=== PATIENT | female | born 1975 | race Caucasian/White ===

== ENCOUNTER 2017-01-18 16:29 | Inpatient (IN) | payer SELFPAY ==
[2017-01-18] MEDS ORDERED: ONDANSETRON 4 MG TAB.RAPDIS SL ONE (17:30)
[2017-01-18] MEDS ORDERED: ASPIRIN 81 MG TABLET, CHEWABLE PO ONE (17:30)
--- NOTE | 2017-01-18 17:32 | ER Document Report ---
ED Medical Screen (RME) - General Chief Complaint: Chest Pain Stated Complaint: CHEST PAINS Time Seen by Provider: 01/18/17 17:25 Mode of Arrival: Wheelchair Information source: Patient TRAVEL OUTSIDE OF THE [place] IN LAST 30 DAYS: No - HPI Patient complains to provider of: Abdominal pain/chest pain Onset: This afternoon Notes: 01/18/17 17:31 Patient is a 41-year-old female who presents to the emergency room complaining of chest pain/upper abdominal pain that started around 330 this afternoon, it is associated with shortness of breath and nausea, she has not been able to vomit but feels as though she needs to, she is diaphoretic, and moaning out in pain, stating she has never experienced symptoms like this before in her life, mother has a history of GA at age 50, patient is a diabetic - Related Data Allergies/Adverse Reactions: No Known Allergies Allergy (Unverified 01/18/17 17:01) Past Medical History Renal/ Medical History: Denies: Hx Peritoneal Dialysis Physical Exam - Vital signs Vitals: Temp Pulse Resp BP Pulse Ox 98.2 F 72 20 120/48 L 99 01/18/17 17:01 01/18/17 17:01 01/18/17 17:01 01/18/17 17:01 01/18/17 17:01 Course - Vital Signs Vital signs: Temp Pulse Resp BP Pulse Ox 98.2 F 72 20 120/48 L 99 01/18/17 17:01 01/18/17 17:01 01/18/17 17:01 01/18/17 17:01 01/18/17 17:01
[2017-01-18 18:06] LABS: ABSOLUTE BASOPHILS # (AUTO) 0.1 10^3/uL (0.0-0.2); ABSOLUTE EOSINOPHILS # (AUTO) 0.1 10^3/uL (0.0-0.6); ABSOLUTE LYMPHOCYTES (AUTO) 2.1 10^3/uL (0.5-4.7); ABSOLUTE MONOCYTES (AUTO) 0.6 10^3/uL (0.1-1.4); ABSOLUTE NEUT (AUTO) 11.2 10^3/uL (1.7-8.2); BASOPHILS % (AUTO) 0.6 % (0-2); EOSINOPHILS % (AUTO) 0.5 % (0-6); HEMATOCRIT 45.7 % (36.0-47.0); HEMOGLOBIN 14.8 g/dL (12.0-15.5); HGB HCT DIFFERENCE -1.3; MEAN CORPUSCULAR HEMOGLOBIN 28.4 pg (27.0-33.4); MEAN CORPUSCULAR HGB CONC 32.3 g/dL (32.0-36.0); MEAN CORPUSCULAR VOLUME 88 fl (80-97); MONOCYTES % (AUTO) 4.4 % (3-13); SEGMENTED NEUTROPHILS % (AUTO) 79.5 % (42-78); WHITE BLOOD COUNT 14.1 10^3/uL (4.0-10.5)
[2017-01-18 18:23] LABS: ALANINE AMINOTRANSFERASE 120 U/L (9-52); ALBUMIN 4.4 g/dL (3.5-5.0); ALKALINE PHOSPHATASE 66 U/L (38-126); ANION GAP 15 (5-19); ASPARTATE AMINO TRANSFERASE 81 U/L (14-36); BILIRUBIN,DIRECT 0.3 mg/dL (0.0-0.4); BILIRUBIN,TOTAL 1.3 mg/dL (0.2-1.3); BLOOD UREA NITROGEN 14 mg/dL (7-20); CALCIUM 9.8 mg/dL (8.4-10.2); CARBON DIOXIDE 23 mmol/L (22-30); CHLORIDE 103 mmol/L (98-107); CREATINE KINASE 32 U/L (30-135); CREATININE RESULT 0.72 mg/dL (0.52-1.25); GLUCOSE 188 mg/dL (75-110); POTASSIUM 4.2 mmol/L (3.6-5.0); SODIUM 140.9 mmol/L (137-145); TOTAL PROTEIN 7.8 g/dL (6.3-8.2)
[2017-01-18] MEDS ORDERED: KETOROLAC TROMETHAMINE INJ/PF 30 MG/1 ML SDV IV ONE (18:29)
--- NOTE | 2017-01-18 18:29 | RADIOLOGY REPORT (SQ) ---
EXAM DESCRIPTION: CHEST PA/LAT COMPLETED DATE/TIME: 01/18/2017 6:13 pm REASON FOR STUDY: cp COMPARISON: None. EXAM PARAMETERS: NUMBER OF VIEWS: two views TECHNIQUE: Digital Frontal and Lateral radiographic views of the chest acquired. RADIATION DOSE: NA LIMITATIONS: none FINDINGS: LUNGS AND PLEURA: No opacities, masses or pneumothorax. No pleural effusion. MEDIASTINUM AND HILAR STRUCTURES: No masses or contour abnormalities. HEART AND VASCULAR STRUCTURES: Heart upper limits of normal size. No evidence for failure. BONES: No acute findings. HARDWARE: Clips in the upper abdomen. OTHER: No other significant finding. IMPRESSION: NO SIGNIFICANT RADIOGRAPHIC FINDING IN THE CHEST. TECHNICAL DOCUMENTATION: JOB ID: [id number] [employer] All Rights Reserved
[2017-01-18 18:35] LABS: CREATINE KINASE MB 0.34 ng/mL (<4.55)
[2017-01-18 18:37] LABS: TROPONIN I < 0.012 ng/mL
--- NOTE | 2017-01-18 18:37 | EKG REPORT ---
SEVERITY:- NORMAL ECG - SINUS RHYTHM : Confirmed by: Magdalene Monte 18-Jan-2017 18:37:10
[2017-01-18 19:22] LABS: LIPASE 34855.3 U/L (23-300)
[2017-01-18] MEDS ORDERED: MORPHINE SULFATE 10 MG/ML INJ IV ONE (19:54)
--- NOTE | 2017-01-18 20:30 | ER Document Report ---
ED GI/ - General Chief Complaint: Chest Pain Stated Complaint: CHEST PAINS Time Seen by Provider: 01/18/17 17:25 Mode of Arrival: Wheelchair Notes: Patient says she had sudden onset of pain in the lower substernal chest region about 3:30 PM today while she was sitting in drinking water. There was very sudden onset of the pain and it spread from the lower substernal region into the epigastric region and right upper quadrant. Patient says is worsened by movement. Has been nauseated and had some dry heaves. Denies any diarrhea. Not constipated. Denies any fever. Has had some chills and sweats. Patient had her gallbladder removed in 2004. TRAVEL OUTSIDE OF THE [place] IN LAST 30 DAYS: No - Related Data Allergies/Adverse Reactions: No Known Allergies Allergy (Unverified 01/18/17 17:01) Past Medical History - General Information source: Patient - Social History Smoking Status: Unknown if Ever Smoked Cigarette use (# per day): No Chew tobacco use (# tins/day): No Drug Abuse: None Family History: Reviewed & Not Pertinent Patient has suicidal ideation: No Patient has homicidal ideation: No Endocrine Medical History: Reports: Hx Diabetes Mellitus Type 2 Past Surgical History: Reports: Hx Cholecystectomy Review of Systems - Review of Systems Notes: REVIEW OF SYSTEMS: CONSTITUTIONAL : Denies fever. EENT: Denies eye, ear, nose or mouth or throat pain or other symptoms. CARDIOVASCULAR: Denies chest pain. RESPIRATORY: Denies cough, chest congestion, or shortness of breath. GASTROINTESTINAL: See HPI. GENITOURINARY: Denies difficulty or painful urinating, urinary frequency, blood in urine. MUSCULOSKELETAL: Denies back or neck pain. Denies joint pain or swelling. SKIN: Denies rash or skin lesions. NEUROLOGICAL: Denies LOC or altered mental status. Denies headache. Denies sensory loss or motor deficits. ALL OTHER SYSTEMS REVIEWED AND NEGATIVE. Physical Exam - Vital signs Vitals: Temp Pulse Resp BP Pulse Ox 98.2 F 72 20 120/48 L 99 01/18/17 17:01 01/18/17 17:01 01/18/17 17:01 01/18/17 17:01 01/18/17 17:01 Interpretation: Normal - Notes Notes: PHYSICAL EXAMINATION: GENERAL: Appears to be in significant pain. HEAD: Atraumatic, normocephalic. NECK: Normal range of motion, supple. LUNGS: Breath sounds clear and equal bilaterally. HEART: Regular rate and rhythm without murmurs. ABDOMEN: Patient is tender to palpation in the epigastrium and right upper quadrant. There is some guarding to deep palpation. Tender of the abdomen is soft and nontender. BACK: No tenderness throughout entire back. EXTREMITIES: Normal range of motion without pain. NEUROLOGICAL: Normal speech, normal gait. Normal sensory, motor, and reflex exams. Awake, alert, and oriented x3. Cranial nerves normal. PSYCH: Normal mood, normal affect. SKIN: Warm, dry, no rashes. Course - Re-evaluation Re-evalutation: 01/18/17 20:34 Patient's labs show a white count of 14,000 and a lipase of 34,000. Discussed with surgeon injection molding machine tender and he does not do ERCPs. Discussed with Dr. Kumari, our GI injection molding machine tender and he does not do ERCPs. I called [facility] and they do not have on-call anyone at their facility that does ERCPx. I was referred to Dr. Jama in [place], who requested that we get a CT scan of this patient's abdomen before deciding that she needs to be transferred there for ERCP. I am turning patient's care over to Dr. Leon, who will check on the CT results and call back to Dr. Pritchard. - Vital Signs Vital signs: Temp Pulse Resp BP Pulse Ox 98.2 F 72 31 H 117/65 97 01/18/17 17:01 01/18/17 17:01 01/18/17 20:01 01/18/17 20:01 01/18/17 20:01 - Laboratory Result Diagrams: 01/18/17 17:49 01/18/17 17:49 Laboratory results interpreted by me: 01/18/17 01/18/17 17:49 17:49 WBC 14.1 H Seg Neutrophils % 79.5 H Absolute Neutrophils 11.2 H Glucose 188 H AST 81 H ALT 120 H Lipase 57815.3 H Discharge - Discharge Clinical Impression: Pancreatitis Qualifiers: Chronicity: acute Pancreatitis type: unspecified pancreatitis type Acute pancreatitis complication: unspecified Qualified Code(s): K85.90 - Acute pancreatitis without necrosis or infection, unspecified Condition: Stable Referrals: BESS HERMAN MD [Primary Care Provider] - Follow up as needed
--- NOTE | 2017-01-18 21:21 | RADIOLOGY REPORT (SQ) ---
EXAM DESCRIPTION: CT ABD/PELVIS WITH IV ONLY COMPLETED DATE/TIME: 01/18/2017 9:02 pm REASON FOR STUDY: Pancreatitis, post cholecystectomy COMPARISON: None. TECHNIQUE: CT scan of the abdomen and pelvis performed using helical scanning technique with dynamic intravenous contrast injection. No oral contrast. Images reviewed with lung, soft tissue, and bone windows. Reconstructed coronal and sagittal MPR images reviewed. Delayed images for evaluation of the urinary system also acquired. All images stored on PACS. All CT scanners at this facility use dose modulation, iterative reconstruction, and/or weight based d osing when appropriate to reduce radiation dose to as low as reasonably achievable (ALARA). [facility]: Dose Right [facility]: CareDose [facility]: Dose Right [facility]: Teradose 4D [facility]: Endocrine Technology CONTRAST TYPE AND DOSE: contrast/concentration: Isovue 370.00 mg/ml; Total Contrast Delivered: 100.0 ml; Total Saline Delivered: 50.0 ml RENAL FUNCTION: BUN 14 creatinine 0.72. RADIATION DOSE: Up-to-date CT equipment and radiation dose reduction techniques were employed. CTDIv ol: 20.4 - 20.9 mGy. DLP: 2351 mGy-cm.. LIMITATIONS: None. FINDINGS: LOWER CHEST: No significant findings. No nodules or infiltrates. LIVER: Normal size. Diffuse fatty infiltration. No masses or dilated ducts. SPLEEN: Normal size. No focal lesions. PANCREAS: No masses. No significant calcifications. Inflammatory changes with stranding in the perip ancreatic soft tissues. No fluid collections. Pancreatic duct not dilated. GALLBLADDER: Surgically absent. ADRENAL GLANDS: No significant masses or asymmetry. RIGHT KIDNEY AND URETER: No solid masses. No significant calcifications. No hydronephrosis or hyd roureter. LEFT KIDNEY AND URETER: No solid masses. No significant calcifications. No hydronephrosis or hydr oureter. AORTA AND VESSELS: No aneurysm. No dissection. Renal arteries, SMA, celiac without stenosis. RETROPERITONEUM: No retroperitoneal adenopathy, hemorrhage or masses. BOWEL AND PERITONEAL CAVITY: No masses or inflammatory changes. No free fluid or peritoneal masses. Duodenal diverticulum. APPENDIX: Not visualized. PELVIS: No mass or free fluid. IUD in the uterus. Normal bladder. ABDOMINAL WALL: No masses. No hernias. BONES: No significant or acute findings. OTHER: No other significant finding. IMPRESSION: 1. INFLAMMATORY CHANGES ASSOCIATED WITH THE PANCREAS CONSISTENT WITH ACUTE PANCREATITIS. NO FLUID CO LLECTIONS OR EVIDENCE OF PANCREATIC CYST OR PSEUDOCYST. 2. FATTY INFILTRATION OF THE LIVER. 3. NO OTHER SIGNIFICANT OR ACUTE FINDING IN THE ABDOMEN OR PELVIS ON CT SCAN WITH IV CONTRAST. TECHNICAL DOCUMENTATION: JOB ID: [id number] Quality ID # [id number]: Final reports with documentation of one or more dose reduction techniques (e.g., Au tomated exposure control, adjustment of the mA and/or kV according to patient size, use of iterative reconstruction technique) 2010 [employer]- All Rights Reserved
[2017-01-18 22:13] LABS: APPEARANCE,URINE CLEAR; BILIRUBIN,URINE NEGATIVE (NEGATIVE); GLUCOSE, URINE 50 mg/dL (NEGATIVE); KETONES,URINE 20 mg/dL (NEGATIVE); LEUKOCYTE ESTERASE,URINE NEGATIVE (NEGATIVE); NITRITE,URINE NEGATIVE (NEGATIVE); PROTEIN,URINE NEGATIVE (NEGATIVE); URINE SPECIFIC GRAVITY > 1.060; UROBILINOGEN,URINE NEGATIVE mg/dL (<2.0)
--- NOTE | 2017-01-18 22:14 | ER Document Report ---
Doctor's Note Notes: 01/18/17 22:14 I assumed care of this patient from Dr. Kemal Brewster. In summary this is a patient who is found to have acute pancreatitis due to an elevated lipase after presenting for chest pain and epigastric abdominal pain. Patient has been referred for transfer to [facility] for an ERCP. CT scan of the abdomen pelvis was obtained does demonstrate findings consistent with acute pancreatitis without alternative acute pathologies. Patient's pain is not controlled with IV analgesia here in the emergency department. I contacted the transfer center and relayed the findings of the CT scan and requested completion of transfer at this time. 01/18/17 23:16 Case was discussed with [facility] transfer [facility], receiving physician does not believe the patient requires transfer at this time based on CT results and lab results. After review of patient's laboratories and history I likewise concur that this is more consistent with an acute idiopathic pancreatitis as opposed to a gallstone induced pancreatitis the patient had a cholecystectomy more than 10 years ago. Moreover she has no evidence of bilirubin or significant LFT derangement. Alk phos is normal. I discussed this case with the hospitalist who will admit.
[2017-01-18] MEDS ORDERED: NORMAL SALINE 1000 ML 1,000 ML IV ONE ×2 (22:48→23:11)
[2017-01-18] MEDS ORDERED: MORPHINE SULFATE 10 MG/ML INJ IV PRN (23:14)
[2017-01-18] MEDS ORDERED: IPRATROPIUM/ALBUTEROL 0.5-2.5 MG/3 ML AMPUL NEB PRN (23:14)
[2017-01-18] MEDS ORDERED: ONDANSETRON HCL INJ/PF 4 MG/2 ML SDV IV PRN (23:14)
[2017-01-18] MEDS ORDERED: DEXTROSE 50%-WATER 25 GM/50 ML DISP.SYRIN IV PRN ×2 (23:19)
[2017-01-18] MEDS ORDERED: DEXTROSE 40% GEL 15 GM TUBE PO PRN ×2 (23:19)
[2017-01-18] MEDS ORDERED: GLUCAGON,HUMAN RECOMB 1 MG INJ IM PRN (23:19)
[2017-01-18 23:42] LABS: CHOLESTEROL 157.44 mg/dL (0-200); Direct HDL 43 mg/dL (>40); TRIGLYCERIDES 123 mg/dL (<150)
[2017-01-18] MEDS ORDERED: ATORVASTATIN CALCIUM 80 MG TABLET PO ONE (23:45)
[2017-01-18 23:53] LABS: DIRECT LDL 88 mg/dL (<100)
[2017-01-19] MEDS: KETOROLAC TROMETHAMINE INJ/PF 30 MG/1 ML SDV IV PRN ×3 (01:32→18:25)
[2017-01-19] MEDS: INSULIN LISPRO 100 UNIT/ML 3 ML VIAL SUBCUT PRN ×4 (01:45→18:19)
[2017-01-19] MEDS: MORPHINE SULFATE 10 MG/ML INJ IV PRN ×5 (02:39→21:55)
--- NOTE | 2017-01-19 02:56 | PDOC H&P ---
History of Present Illness Admission Date/PCP: 01/18/17 23:35 BESS HERMAN MD Patient complains of: Epigastric pain History of Present Illness: ANDREZ BURKS is a 41 year old female with past medical history of morbid obesity and diabetes who is in her usual state of health until approximately 6 hours prior to presentation following the abrupt onset of epigastric discomfort with increasing intensity to 5 out of 5 which radiated to the back and was dull in nature associated with nausea without vomiting prompting her to seek evaluation emergency room where she is found to have a lipase of 35,[address] of the abdomen pelvis notable for pancreatic inflammation without ductal dilatation or necrosis she receives IV fluid and morphine and referred to the hospitalist for admission. Patient denies previous episode, alcohol or recent change in medication. She is status post cholecystectomy greater than 10 years ago. Past Medical History Endocrine Medical History: Reports: Diabetes Mellitus Type 2, Obesity Past Surgical History Past Surgical History: Reports: Cholecystectomy Social History Information Source: Patient Smoking Status: Never Smoker Frequency of Alcohol Use: Occasional Drugs: None Hx Prescription Drug Abuse: No - Advance Directive Resuscitation Status: Full Code Family History Family History: CAD, DM Parental Family History Reviewed: Yes Children Family History Reviewed: Yes Sibling(s) Family History Reviewed.: Yes Medication/Allergy Home Medications: Metformin HCl [Metformin HCl ER] 500 mg PO DAILY 01/19/17 Allergies/Adverse Reactions: No Known Allergies Allergy (Unverified 01/18/17 17:01) Review of Systems Constitutional: ABSENT: chills, fever(s), headache(s), weight gain, weight loss Eyes: ABSENT: visual disturbances Ears: ABSENT: hearing changes Cardiovascular: ABSENT: chest pain, dyspnea on exertion, edema, orthropnea, palpitations Respiratory: ABSENT: cough, hemoptysis Gastrointestinal: ABSENT: abdominal pain, constipation, diarrhea, hematemesis, hematochezia, nausea, vomiting Genitourinary: ABSENT: dysuria, hematuria Musculoskeletal: ABSENT: joint swelling Integumentary: ABSENT: rash, wounds Neurological: ABSENT: abnormal gait, abnormal speech, confusion, dizziness, focal weakness, syncope Psychiatric: ABSENT: anxiety, depression, homidical ideation, suicidal ideation Endocrine: ABSENT: cold intolerance, heat intolerance, polydipsia, polyuria Hematologic/Lymphatic: ABSENT: easy bleeding, easy bruising Physical Exam Vital Signs: Temp Pulse Resp BP Pulse Ox 98.1 F 76 18 129/64 H 92 01/18/17 23:14 01/18/17 23:14 01/19/17 01:50 01/19/17 00:00 01/19/17 00:01 General appearance: PRESENT: cooperative, mild distress, morbidly obese, well- developed, well-nourished Head exam: PRESENT: atraumatic, normocephalic Eye exam: PRESENT: conjunctiva pink, EOMI, PERRLA. ABSENT: scleral icterus Ear exam: PRESENT: normal external ear exam Mouth exam: PRESENT: moist, tongue midline Neck exam: ABSENT: carotid bruit, JVD, lymphadenopathy, thyromegaly Respiratory exam: PRESENT: clear to auscultation norris. ABSENT: rales, rhonchi, wheezes Cardiovascular exam: PRESENT: RRR. ABSENT: diastolic murmur, rubs, systolic murmur Pulses: PRESENT: normal dorsalis pedis pul Vascular exam: PRESENT: normal capillary refill GI/Abdominal exam: PRESENT: hyperactive bowel sounds, normal bowel sounds, soft , tenderness - Epigastric pain to palpation. ABSENT: distended, guarding, mass , organolmegaly, rebound Rectal exam: PRESENT: deferred Extremities exam: PRESENT: full ROM. ABSENT: calf tenderness, clubbing, pedal edema Neurological exam: PRESENT: alert, awake, oriented to person, oriented to place , oriented to time, oriented to situation, CN II-XII grossly intact. ABSENT: motor sensory deficit Psychiatric exam: PRESENT: appropriate affect, normal mood. ABSENT: homicidal ideation, suicidal ideation Skin exam: PRESENT: dry, intact, warm. ABSENT: cyanosis, rash Results Impressions: Chest X-Ray 01/18/17 17:29 IMPRESSION: NO SIGNIFICANT RADIOGRAPHIC FINDING IN THE CHEST. Abdomen/Pelvis CT 01/18/17 20:22 IMPRESSION: 1. INFLAMMATORY CHANGES ASSOCIATED WITH THE PANCREAS CONSISTENT WITH ACUTE PANCREATITIS. NO FLUID COLLECTIONS OR EVIDENCE OF PANCREATIC CYST OR PSEUDOCYST. 2. FATTY INFILTRATION OF THE LIVER. 3. NO OTHER SIGNIFICANT OR ACUTE FINDING IN THE ABDOMEN OR PELVIS ON CT SCAN WITH IV CONTRAST. Assessment & Plan - Diagnosis (1) Pancreatitis Qualifiers: Chronicity: acute Pancreatitis type: unspecified pancreatitis type Acute pancreatitis complication: unspecified Qualified Code(s): K85.90 - Acute pancreatitis without necrosis or infection, unspecified Is this a current diagnosis for this admission?: YesPlan: Bowel rest, IV fluids and symptomatic management follow-up chemistry, lipid profile and lipase trial of refeeding with clear liquids as tolerated. If worsened GI consult and consideration of MRCP. (2) Diabetes 1.5, managed as type 2 Is this a current diagnosis for this admission?: YesPlan: Hold metformin and start sliding scale insulin every 6 hours (3) Morbid obesity with BMI of 40.0-44.9, adult Is this a current diagnosis for this admission?: YesPlan: Evaluate TSH consider diet education - Time Time Spent: 50 to 70 Minutes - Inpatient Certification Medical Necessity: Need Close Monitoring Due to Risk of Patient Decompensation
[2017-01-19] MEDS: NORMAL SALINE 1000 ML 1,000 ML IV PRN ×3 (06:00→18:47)
[2017-01-19] MEDS: HEPARIN SOD (PORCINE) 5,000 UNIT/ML 1 ML SYRINGE SUBCUT SCH ×3 (06:00→21:55)
[2017-01-19 06:11] LABS: ABSOLUTE LYMPHOCYTES (AUTO) 0.6 10^3/uL (0.5-4.7); ABSOLUTE MONOCYTES (AUTO) 0.4 10^3/uL (0.1-1.4); ABSOLUTE NEUT (AUTO) 11.4 10^3/uL (1.7-8.2); BASOPHILS % (AUTO) 0.3 % (0-2); HEMATOCRIT 41.6 % (36.0-47.0); HEMOGLOBIN 13.5 g/dL (12.0-15.5); HGB HCT DIFFERENCE -1.1; LYMPHOCYTES % (AUTO) 5.2 % (13-45); MEAN CORPUSCULAR HEMOGLOBIN 28.5 pg (27.0-33.4); MEAN CORPUSCULAR HGB CONC 32.5 g/dL (32.0-36.0); MEAN CORPUSCULAR VOLUME 88 fl (80-97); MONOCYTES % (AUTO) 2.9 % (3-13); RED BLOOD COUNT 4.74 10^6/uL (3.72-5.28); RED CELL DISTRIBUTION WIDTH 14.3 % (11.5-14.0); SEGMENTED NEUTROPHILS % (AUTO) 91.6 % (42-78); WHITE BLOOD COUNT 12.4 10^3/uL (4.0-10.5)
[2017-01-19 06:28] LABS: ALANINE AMINOTRANSFERASE 90 U/L (9-52); ALBUMIN 3.4 g/dL (3.5-5.0); ALKALINE PHOSPHATASE 46 U/L (38-126); ANION GAP 13 (5-19); ASPARTATE AMINO TRANSFERASE 45 U/L (14-36); BILIRUBIN,DIRECT 0.3 mg/dL (0.0-0.4); BILIRUBIN,TOTAL 1.8 mg/dL (0.2-1.3); BLOOD UREA NITROGEN 16 mg/dL (7-20); CALCIUM 8.5 mg/dL (8.4-10.2); CARBON DIOXIDE 21 mmol/L (22-30); CHLORIDE 104 mmol/L (98-107); CREATININE RESULT 0.62 mg/dL (0.52-1.25); GLUCOSE 261 mg/dL (75-110); POTASSIUM 4.6 mmol/L (3.6-5.0); SODIUM 137.7 mmol/L (137-145); TOTAL PROTEIN 6.5 g/dL (6.3-8.2)
[2017-01-19] MEDS: DOCUSATE SODIUM 100 MG CAPSULE PO SCH ×2 (09:08→17:31)
--- NOTE | 2017-01-19 16:24 | PROGRESS NOTE E ---
Progress Note NAME: ANDREZ BURKS : 1975 AGE: 41Y DATE: 01/19/2017 ROOM: 420 SUBJECTIVE: The patient was seen earlier today on rounds. She states that she feels overall better today but still feels quite ill. She denies any actual vomiting but admits to nausea, abdominal pain. No shortness of breath, dizziness, chest pain. No fevers, chills. The patient has been afebrile. Her blood pressures have been in a good range, and the patient does not voice any other concerns at this time. REVIEW OF SYSTEMS: The rest of the review of systems is negative. MEDICATIONS: Medications have been reviewed. OBJECTIVE: GENERAL: The patient is a 41-year-old female who is awake, alert and oriented to person, place, time, and situation. She is verbal, conversational, and does not appear to be in any acute distress. VITAL SIGNS: As follows: Temperature is 98.3, pulse 89, respirations 18, blood pressure is 111/46, oxygen saturation is 98% on room air. SKIN: Warm and dry. No rash. Not diaphoretic. HEENT: Pupils equal, round, reactive to light and accommodation. Conjunctiva is pink. NECK: No JVD. CARDIOVASCULAR SYSTEM: Heart is regular. There is no murmur or rub. CHEST: Clear, symmetrical, unlabored. ABDOMEN: Diffusely tender. BACK: No CVA tenderness, sacral edema. EXTREMITIES: No clubbing, cyanosis. PSYCHIATRIC: Appropriate affect. Pleasant mood. DIAGNOSTICS: Lab values are as follows: Hematology obtained on 01/19/2017; WBCs are 12.4, hemoglobin is 13.5, hematocrit is 41.6, platelet count is 226,000. Chemistry obtained on 01/19/2017: Sodium is 137, potassium 4.6, chloride is 104, carbon dioxide 21, BUN 16, creatinine is 0.61, glucose 261, calcium is 8.5, bilirubin is 1.8, AST 45, ALT is 90, total protein is 10.5, albumin is 3.4. IMPRESSION AND PLAN: 1. ACUTE IDIOPATHIC PANCREATITIS. The patient denies any use of GLP4s or diuretics. The patient denies any sick contacts. The patient does feel improved in comparison to admission. Will aggressively hydrate, maintain NPO status. Will repeat lipase in the a.m. If this does not suffice, will obtain further imaging with MRCP. LFTs are not too abnormal. Will defer a HIDA scan and follow. 2. DIABETES MELLITUS TYPE 2. Glucose has been slightly elevated. Will add sliding scale coverage and follow. 3. MORBID OBESITY WITH A BMI OF 39. Will encourage weight reduction. DISPOSITION: The patient is a FULL CODE. Pending patient's symptomatology and diagnostic findings, will re-evaluate in the a.m. Time spent on this followup including assessment, plan, physical examination, patient education is 25 minutes. DICTATING PHYSICIAN: KEVYN CARPENTER NP [id number] PHY#: [id number] ID: [id number] JOB#: [id number] ACCT: [id number] cc:KEVYN CARPENTER NP >
[2017-01-19] MEDS ORDERED: NORMAL SALINE 1000 ML 3,000 ML IV PRN (20:00)
[2017-01-20] MEDS: INSULIN LISPRO 100 UNIT/ML 3 ML VIAL SUBCUT PRN ×4 (00:59→21:54)
[2017-01-20] MEDS: KETOROLAC TROMETHAMINE INJ/PF 30 MG/1 ML SDV IV PRN ×4 (00:59→20:37)
[2017-01-20] MEDS: MORPHINE SULFATE 10 MG/ML INJ IV PRN (02:46)
[2017-01-20 05:31] LABS: ABSOLUTE BASOPHILS # (AUTO) 0.1 10^3/uL (0.0-0.2); ABSOLUTE EOSINOPHILS # (AUTO) 0.3 10^3/uL (0.0-0.6); ABSOLUTE LYMPHOCYTES (AUTO) 1.1 10^3/uL (0.5-4.7); ABSOLUTE MONOCYTES (AUTO) 0.6 10^3/uL (0.1-1.4); ABSOLUTE NEUT (AUTO) 9.8 10^3/uL (1.7-8.2); BASOPHILS % (AUTO) 0.4 % (0-2); EOSINOPHILS % (AUTO) 2.3 % (0-6); HEMATOCRIT 39.8 % (36.0-47.0); HEMOGLOBIN 12.9 g/dL (12.0-15.5); HGB HCT DIFFERENCE -1.1; LYMPHOCYTES % (AUTO) 9.6 % (13-45); MEAN CORPUSCULAR HEMOGLOBIN 28.3 pg (27.0-33.4); MEAN CORPUSCULAR HGB CONC 32.3 g/dL (32.0-36.0); MEAN CORPUSCULAR VOLUME 88 fl (80-97); MONOCYTES % (AUTO) 5.4 % (3-13); RED BLOOD COUNT 4.54 10^6/uL (3.72-5.28); RED CELL DISTRIBUTION WIDTH 14.4 % (11.5-14.0); SEGMENTED NEUTROPHILS % (AUTO) 82.3 % (42-78); WHITE BLOOD COUNT 11.9 10^3/uL (4.0-10.5)
[2017-01-20 06:01] LABS: ALANINE AMINOTRANSFERASE 54 U/L (9-52); ALBUMIN 2.8 g/dL (3.5-5.0); ALKALINE PHOSPHATASE 53 U/L (38-126); ANION GAP 8 (5-19); ASPARTATE AMINO TRANSFERASE 41 U/L (14-36); BILIRUBIN,DIRECT 0.6 mg/dL (0.0-0.4); BILIRUBIN,TOTAL 2.9 mg/dL (0.2-1.3); BLOOD UREA NITROGEN 14 mg/dL (7-20); CALCIUM 7.3 mg/dL (8.4-10.2); CARBON DIOXIDE 24 mmol/L (22-30); CHLORIDE 108 mmol/L (98-107); GLUCOSE 180 mg/dL (75-110); LIPASE 1705.8 U/L (23-300); MAGNESIUM 1.9 mg/dL (1.6-2.3); POTASSIUM 3.7 mmol/L (3.6-5.0); SODIUM 139.6 mmol/L (137-145); TOTAL PROTEIN 5.7 g/dL (6.3-8.2)
[2017-01-20] MEDS: HEPARIN SOD (PORCINE) 5,000 UNIT/ML 1 ML SYRINGE SUBCUT SCH ×3 (06:33→21:54)
[2017-01-20] MEDS: DOCUSATE SODIUM 100 MG CAPSULE PO SCH ×2 (09:13→20:37)
[2017-01-20] MEDS: ACETAMINOPHEN 325 MG TABLET PO PRN ×2 (09:16→20:36)
--- NOTE | 2017-01-20 12:38 | PROGRESS NOTE E ---
Progress Note NAME: ANDREZ BURKS : 1975 AGE: 41Y DATE: 01/20/2017 ROOM: 420 SUBJECTIVE: The patient is currently out of bed into the bedside chair. She states she feels much better today. She is actually asking for food. The patient has had no reported episodes of vomiting nor diarrhea. No shortness of breath, dizziness, chest pain. No fevers, chills. The patient has been afebrile. Blood pressure has been in a good range. The patient does not voice any other concerns at this time. REVIEW OF SYSTEMS: Rest of review of systems negative. MEDICATIONS: Medications have been reviewed. OBJECTIVE: GENERAL: The patient is a 41-year-old female who is awake, alert, and oriented to person, place, time, and situation. She is verbal, conversational, ambulatory, does not appear to be in any acute distress. VITAL SIGNS: Temperature is 98.4, pulse 79, respirations 20, blood pressure is 124/71, oxygen saturation is 93% on room air. SKIN: Warm and dry. No rash. She is not diaphoretic. HEENT: Pupils equal, round, and reactive to light and accommodation. Conjunctiva is pink. No JVP. CARDIOVASCULAR SYSTEM: Heart is regular. There is no murmur or rub. CHEST: Clear, symmetrical, unlabored. ABDOMEN: Soft, nontender, nondistended. BACK: No CVA tenderness or sacral edema. EXTREMITIES: No clubbing, cyanosis, edema. PSYCHIATRIC: Appropriate affect, pleasant mood. DIAGNOSTICS: Lab values are as follows: Hematology obtained on 01/20/2017: WBCs are 1.9, hemoglobin is 12.9, hematocrit is 39.8, platelet count is 183,000. Chemistry obtained on 01/20/2017: Sodium is 139, potassium 3.7, chloride is 108, carbon dioxide 24, BUN 8, creatinine is 0.70, glucose 180, calcium of 7.3, magnesium of 1.9, bilirubin is 2.9. AST 41, ALT is 54, Alk phos 53, total protein 5.7, albumin 2.8. Lipase is 1705. IMPRESSION AND PLAN: 1. ACUTE PANCREATITIS. The patient's lipase has improved drastically overnight; however, she has now bumped her LFTs suggestive of biliary etiology. Will obtain ultrasound and follow. 2. DIABETES MELLITUS TYPE 2. Glucose has been slightly elevated. Will continue sliding scale coverage and follow. 3. MORBID OBESITY WITH BMI OF 39. Encourage weight reduction. DISPOSITION: The patient is a FULL CODE. Pending patient's symptomatology and diagnostic findings, will re-evaluate in the a.m. Time spent on this followup including assessment, plan, physical examination, patient education is 20 minutes. DICTATING PHYSICIAN: KEVYN CARPENTER NP [id number] PHY#: [id number] [id number] JOB#: [id number] ACCT: [id number] cc: >
--- NOTE | 2017-01-20 20:55 | RADIOLOGY REPORT (SQ) ---
EXAM DESCRIPTION: U/S ABDOMEN LIMITED W/O DOP COMPLETED DATE/TIME: 01/20/2017 8:30 pm REASON FOR STUDY: Elevated LFTs, pancreatitis COMPARISON: None. TECHNIQUE: Dynamic and static grayscale images acquired of the right upper quadrant and recorded on PACS. Additional selected color Doppler and spectral images recorded. LIMITATIONS: Body habitus. FINDINGS: PANCREAS: Parts or all of the pancreas poorly seen secondary to acoustical interference fr om fat or from air in the bowel. LIVER: Echotexture is coarse with increased echogenicity consistent with fatty infiltration. No mass es. LIVER VASCULATURE: Normal directional flow of the main portal vein. GALLBLADDER: Surgically absent. ULTRASOUND-DETECTED SYLVESTER'S SIGN: Not applicable. INTRAHEPATIC DUCTS AND COMMON DUCT: CBD and intrahepatic ducts normal caliber. No filling defects. INFERIOR VENA CAVA: Obscured. AORTA: Mostly obscured. RIGHT KIDNEY: Normal size. Normal echogenicity. No solid or suspicious masses. No hydronephrosis. No calcifications. PERITONEAL CAVITY AND RIGHT PLEURAL SPACE: No ascites or effusions. OTHER: No other significant finding. IMPRESSION: Technical limitations. No acute findings. TECHNICAL DOCUMENTATION: JOB ID: [id number] [employer]- All Rights Reserved
[2017-01-21] MEDS: MORPHINE SULFATE 10 MG/ML INJ IV PRN ×2 (00:54→10:17)
[2017-01-21 05:07] LABS: HEMATOCRIT 36.7 % (36.0-47.0); HEMOGLOBIN 12.1 g/dL (12.0-15.5); HGB HCT DIFFERENCE -0.4; MEAN CORPUSCULAR HEMOGLOBIN 28.7 pg (27.0-33.4); MEAN CORPUSCULAR VOLUME 87 fl (80-97); RED BLOOD COUNT 4.22 10^6/uL (3.72-5.28); RED CELL DISTRIBUTION WIDTH 13.9 % (11.5-14.0); WHITE BLOOD COUNT 11.8 10^3/uL (4.0-10.5)
[2017-01-21 05:31] LABS: ALANINE AMINOTRANSFERASE 45 U/L (9-52); ALBUMIN 2.7 g/dL (3.5-5.0); ALKALINE PHOSPHATASE 46 U/L (38-126); ANION GAP 9 (5-19); ASPARTATE AMINO TRANSFERASE 18 U/L (14-36); BILIRUBIN,DIRECT 0.4 mg/dL (0.0-0.4); BLOOD UREA NITROGEN 9 mg/dL (7-20); CALCIUM 7.7 mg/dL (8.4-10.2); CARBON DIOXIDE 24 mmol/L (22-30); CHLORIDE 104 mmol/L (98-107); CREATININE RESULT 0.55 mg/dL (0.52-1.25); GLUCOSE 181 mg/dL (75-110); POTASSIUM 3.6 mmol/L (3.6-5.0); SODIUM 136.5 mmol/L (137-145); TOTAL PROTEIN 5.5 g/dL (6.3-8.2)
[2017-01-21] MEDS: HEPARIN SOD (PORCINE) 5,000 UNIT/ML 1 ML SYRINGE SUBCUT SCH (06:53)
[2017-01-21] MEDS: DOCUSATE SODIUM 100 MG CAPSULE PO SCH (09:46)
[2017-01-21] MEDS ORDERED: (PENDING PHARMACY ID) (Clonazepam [Klonopin] 0.5 MG) PO PRN (10:33)
[2017-01-21] MEDS ORDERED: TRAMADOL HCL 50 MG TABLET PO PRN (10:38)
[2017-01-21] MEDS ORDERED: ONDANSETRON 4 MG TAB.RAPDIS PO PRN (10:38)
[2017-01-21] MEDS ORDERED: SIMETHICONE 80 MG TAB.CHEW PO ONE (10:38)
[2017-01-21] MEDS ORDERED: CLONAZEPAM 1 MG TABLET PO PRN (11:48)
[2017-01-21] MEDS: INSULIN LISPRO 100 UNIT/ML 3 ML VIAL SUBCUT PRN (12:36)
[2017-01-21 14:10] VITALS: BP 131/68
--- NOTE | 2017-01-21 16:38 | DISCHARGE SUMMARY E ---
Discharge Summary NAME: ANDREZ BURKS : 1975 AGE: 41Y ADMITTED: 01/18/2017 DISCHARGED: 01/21/2017 CODE STATUS: FULL CODE. PRIMARY CARE PROVIDER: Mary Stewart DISCHARGE MEDICATIONS: 1. Klonopin 0.5 mg p.o. b.i.d. p.r.n. 2. Metformin ER 500 mg p.o. daily. DIET: Low fat as tolerated. ACTIVITY: As tolerated. HISTORY OF PRESENT ILLNESS: The patient is a 41-year-old female with a past medical history of diabetes mellitus type 2. The patient presented to the emergency department with a chief complaint of epigastric pain. According to the patient, she was in her usual state of health until approximately 6 hours prior to presentation when she had abrupt onset of epigastric discomfort with increasing intensity which radiated to the back. It was dull in nature. It was associated with nausea without vomiting which prompted her to seek evaluation in the emergency department. The patient was found to have a lipase of 35,000. A CT of abdomen and pelvis was notable for pancreatic inflammation without duct dilatation or necrosis. The patient did receive IV fluid bolus as well as morphine, and was referred to the hospitalist for admission and management. HOSPITAL COURSE: The patient was admitted to continuous telemetry unit. The patient was aggressively hydrated and kept n.p.o. The patient's lipase went from 35,000 to 1700 in just over 24 hours. The patient had significant improvement of symptoms and on the day of discharge, the lipase had trended down to 652. The patient's white count had trended down and the patient had no further vomiting. The patient tolerated clear liquids without issue and was advanced to full liquid diet. The patient did complain of some gas pain which was supplemented with simethicone. The patient's workup was otherwise essentially unremarkable. The patient does not take diuretics or on any irritating pancreatic agents. The patient does not consume alcohol. She has had her gallbladder removed. The patient did have a transient elevation of LFTs which corrected overnight, possibly suggestive of a transient issue but the patient's symptoms are greatly improved and she is ready for discharge. DIAGNOSTICS: Lab values are as follows: Hematology obtained on 01/21/2017: WBCs are 11.8, hemoglobin is 12.1, hematocrit is 36.7, platelet count is 180,000. Chemistry obtained on 01/21/2017: Sodium is 136, potassium 3.6, chloride is 104, carbon dioxide 24, BUN 9, creatinine is 0.5, glucose 181, A1c is 7.7, calcium is 7.7, magnesium is 1.9, bilirubin is 2.0, AST 18, ALT is 45, alk phos 46, total protein 5.5, albumin 2.7, lipase is 662. Urinalysis obtained on 01/18/2017: Color yellow, appearance clear, pH 5.0, specific gravity 1.010, protein negative, glucose 50, ketones 20, occult blood large, nitrate negative, bilirubin negative, urobilinogen negative, leukocyte esterase negative, WBC 1, RBC 5, epithelial squamous cells 2, mucous moderate, ascorbic acid negative. Chest x-ray obtained on 01/18/2017 reveals no significant radiographic finding of the chest. CT of the abdomen and pelvis obtained on 01/18/2017 reveals inflammatory changes associated with pancreatitis consistent with an acute episode. No fluid collection or evidence of pseudocyst, fatty infiltration of the liver. Abdominal ultrasound obtained on 01/20/2017 found no acute issue. EKG obtained on 01/18/2017 reveals sinus rhythm. PHYSICAL EXAMINATION: GENERAL: On examination, the patient is a well-developed, well-nourished, 41-year-old female who is awake, alert, and oriented to person, place, time, and situation. She is verbal, conversational, ambulatory, and does not appear to be in any acute distress. VITAL SIGNS: Temperature 98., pulse 75, respirations 28, blood pressure is 131/68, oxygen saturation is 95% on room air. SKIN: Warm and dry. No rash. Not diaphoretic. HEENT: Pupils equal, round, reactive to light and accommodation. Conjunctivae are pink. No JVP. CARDIOVASCULAR: Heart is regular with no murmur or rub. CHEST: Clear, symmetrical, unlabored. ABDOMEN: Soft, nontender, nondistended. BACK: No CVA tenderness or sacral edema. EXTREMITIES: No clubbing, cyanosis or edema. DISCHARGE PLANNING: The patient was advised to followup with her primary care provider within 1 week for hospital followup. Time spent on this discharge including assessment, plan, physical examination, and patient education is 25 minutes. DICTATING PHYSICIAN: KEVYN CARPENTER NP [id number] PHY#: [id number] ID: [id number] JOB#: [id number] ACCT: [id number] cc:ARIELLE VILLEDA M.D., MICHAEL [employer]ANCE [employer]ESSOR > AMAURI
[2017-01-21] MEDS ORDERED: METFORMIN HCL 500 MG TABLET PO SCH (17:00)
[2017-01-22] MEDS ORDERED: (PENDING PHARMACY ID) (Metformin Hcl [Metformin Hcl Er] 500 MG) PO SCH (10:00)
--- NOTE | 2017-02-05 11:14 | DISCHARGE SUMMARY E ---
Discharge Summary NAME: ANDREZ BURKS : 1975 AGE: 41Y ADMITTED: 01/18/2017 DISCHARGED: 01/21/2017 ADDENDUM: DISCHARGE DIAGNOSES: 1. Acute idiopathic pancreatitis, resolved. 2. Diabetes mellitus type 2. 3. Morbid obesity with BMI of 39. DICTATING PHYSICIAN: KEVYN CARPENTER NP [id number] PHY#: [id number] ID: [id number] JOB#: [id number] ACCT: [id number] cc:ARIELLE VILLEDA M.D. KEVYN CARPENTER NP >
== END 2017-01-21 15:25 | disposition home or self-care (01) | DRG 440 ==
LOC: ER 16:29 → EH 23:35 → 4W 01-19 01:00
PROVIDERS: ADMIT Internal Medicine; ATTEND Internal Medicine
PROC: 5A09357 Assistance with Respiratory Ventilation, Less than 24 Consecutive Hours, Continuous Positive Airway Pressure (ICD-10-PCS; principal; 2017-01-19)
PROC: 5A09357 Assistance with Respiratory Ventilation, Less than 24 Consecutive Hours, Continuous Positive Airway Pressure (ICD-10-PCS; 2017-01-20)
DX: K85.00 Idiopathic acute pancreatitis without necrosis or infection (principal); Z68.39 Body mass index [BMI] 39.0-39.9, adult; R10.13 Epigastric pain; E11.9 Type 2 diabetes mellitus without complications; E66.01 Morbid (severe) obesity due to excess calories; Z90.49 Acquired absence of other specified parts of digestive tract; Z83.3 Family history of diabetes mellitus; Z82.49 Family history of ischemic heart disease and other diseases of the circulatory system; Z79.899 Other long term (current) drug therapy
CPT/HCPCS: 36415; 71020; 74177; 76705; 80053; 80061; 81001; 82550; 82553; 82962; 83036; 83690; 83735; 84443; 84484; 84703; 85025; 85027; 93005; 93010; 94660; 96360; 96374; 96375; 99285; J1644; J1815; J1885; J2270; J7030; S0119

== ENCOUNTER → 2017-02-03 | Outpatient (CLI) | payer BC ==
[2017-02-03 16:13] LABS: ABSOLUTE BASOPHILS # (AUTO) 0.2 10^3/uL (0.0-0.2); ABSOLUTE EOSINOPHILS # (AUTO) 0.3 10^3/uL (0.0-0.6); ABSOLUTE LYMPHOCYTES (AUTO) 2.6 10^3/uL (0.5-4.7); ABSOLUTE MONOCYTES (AUTO) 0.8 10^3/uL (0.1-1.4); ABSOLUTE NEUT (AUTO) 11.2 10^3/uL (1.7-8.2); BASOPHILS % (AUTO) 1.2 % (0-2); EOSINOPHILS % (AUTO) 2.1 % (0-6); HEMATOCRIT 44.3 % (36.0-47.0); HEMOGLOBIN 14.7 g/dL (12.0-15.5); HGB HCT DIFFERENCE -0.2; LYMPHOCYTES % (AUTO) 17.2 % (13-45); MEAN CORPUSCULAR HEMOGLOBIN 28.2 pg (27.0-33.4); MEAN CORPUSCULAR HGB CONC 33.1 g/dL (32.0-36.0); MEAN CORPUSCULAR VOLUME 85 fl (80-97); MONOCYTES % (AUTO) 5.4 % (3-13); RED CELL DISTRIBUTION WIDTH 14.3 % (11.5-14.0); SEGMENTED NEUTROPHILS % (AUTO) 74.1 % (42-78); WHITE BLOOD COUNT 15.1 10^3/uL (4.0-10.5)
[2017-02-03 16:21] LABS: ALANINE AMINOTRANSFERASE 91 U/L (9-52); ALBUMIN 4.4 g/dL (3.5-5.0); ALKALINE PHOSPHATASE 64 U/L (38-126); AMYLASE 45 U/L (30-110); ANION GAP 15 (5-19); ASPARTATE AMINO TRANSFERASE 77 U/L (14-36); BILIRUBIN,DIRECT 0.3 mg/dL (0.0-0.4); BILIRUBIN,TOTAL 1.3 mg/dL (0.2-1.3); BLOOD UREA NITROGEN 11 mg/dL (7-20); CALCIUM 9.8 mg/dL (8.4-10.2); CARBON DIOXIDE 23 mmol/L (22-30); CHLORIDE 102 mmol/L (98-107); CREATININE RESULT 0.68 mg/dL (0.52-1.25); GLUCOSE 148 mg/dL (75-110); LIPASE 527.1 U/L (23-300); POTASSIUM 4.9 mmol/L (3.6-5.0); SODIUM 139.8 mmol/L (137-145); TOTAL PROTEIN 7.9 g/dL (6.3-8.2)
--- NOTE | 2017-02-03 17:12 | RADIOLOGY REPORT (SQ) ---
EXAM DESCRIPTION: CT ABD/PELVIS COMBO COMPLETED DATE/TIME: 02/03/2017 4:32 pm REASON FOR STUDY: IDIOPATHIC ACUTE PANCREATITIS K85.00 IDIOPATHIC ACUTE PANCREATITIS WITHOUT NECROS IS OR INF COMPARISON: 01/18/2017 TECHNIQUE: Four phase CT scan limited views of the abdomen performed with and without intravenous co ntrast and without oral contrast. Contrasted imaging performed using helical scanning technique with dynamic intravenous contrast injection. Thin sliced arterial and portal venous phase post contrast images acquired. Images reviewed with lung, soft tissue, and bone windows. Reconstructed coronal an d sagittal MPR images reviewed. Delayed images for evaluation of the urinary system also acquired an d evaluated. All images stored on PACS. All CT scanners at this facility use dose modulation, iterative reconstruction, and/or weight based d osing when appropriate to reduce radiation dose to as low as reasonably achievable (ALARA). [facility]: Dose Right [facility]: CareDose [facility]: Dose Right [facility]: Teradose 4D [facility]: [employer] CONTRAST TYPE AND DOSE: contrast/concentration: Isovue 370.00 mg/ml; Total Contrast Delivered: 61.0 ml; Total Saline Delivered: 80.0 ml RENAL FUNCTION: GFR > 60. RADIATION DOSE: Up-to-date CT equipment and radiation dose reduction techniques were employed. CTDIv ol: 14.1 - 23.6 mGy. DLP: 4118 mGy-cm. . LIMITATIONS: None. FINDINGS: NONCONTRASTED IMAGING: No pancreatic calcifications. Right upper quadrant clips status po stcholecystectomy. POSTCONTRASTED IMAGING: LOWER CHEST: No significant findings. No nodules or infiltrates. LIVER: No focal masses. Diffuse fatty infiltration. SPLEEN: No focal lesions in the visualized spleen. PANCREAS: There are poorly defined low-density lesions developing in the pancreas when compared the p revious study. Most superior is in the body of the pancreas measuring 3.2 x 1.9 cm. A seconds lesio n in the tail measures 3.5 x 2.9 cm. 3rd lesion arising from the inferior pancreas along the body an d head measures 5.2 x 2.1 cm. These all have the appearance of developing pseudo cysts. Minimal res idual. Pancreatic fat stranding extending into the mesenteric. No fluid along the gutters and no fr ee fluid in the pelvis. GALLBLADDER: Surgically absent. ADRENAL GLANDS: No significant masses or asymmetry. RIGHT KIDNEY AND URETER: No mass, calculi or urinary tract obstruction. LEFT KIDNEY AND URETER: No mass, calculi or urinary tract obstruction. AORTA AND VESSELS: Limited visualization without aneurysm. RETROPERITONEUM: No retroperitoneal adenopathy, hemorrhage or masses. BOWEL AND PERITONEAL CAVITY: Diverticulosis without diverticulitis. ABDOMINAL WALL: No masses. No hernias. BONY STRUCTURES: No significant or acute findings in the visualized bony structures. OTHER: No other significant finding. IMPRESSION: 3 developing pseudo cysts in the pancreas. Currently with poorly defined clement. Mild r esidual peripancreatic and mesenteric inflammatory changes. TECHNICAL DOCUMENTATION: JOB ID: [id number] Quality ID # [id number]: Final reports with documentation of one or more dose reduction techniques (e.g., Au tomated exposure control, adjustment of the mA and/or kV according to patient size, use of iterative reconstruction technique) 2010 [employer]- All Rights Reserved
== END ==
LOC: RAD 15:50
PROVIDERS: ATTEND Nurse Practitioner
DX: K85.00 Idiopathic acute pancreatitis without necrosis or infection (principal)
CPT/HCPCS: 36415; 74178; 80053; 82150; 83690; 85025